=== PATIENT | female | born 1985 | race Caucasian/White ===

== ENCOUNTER 2021-11-23 20:01 | Emergency (ER) | payer OTHER ==
[2021-11-23 20:24] VITALS: BP 120/77; PULSE 70; TEMP 98.6; BMI 30.5
[2021-11-23] MEDS ORDERED: ACETAMINOPHEN 500 MG TABLET (FP) ONE (23:24)
[2021-11-23] MEDS ORDERED: ACETAMINOPHEN 500 MG TABLET (FP) PO ONE (23:25)
== END 2021-11-23 23:30 | disposition home or self-care (01) ==
LOC: FER 20:01
PROC: 0HQGXZZ Repair Left Hand Skin, External Approach (ICD-10-PCS; principal; 2021-11-23)
DX: S61.512A Laceration without foreign body of left wrist, initial encounter (principal); W25.XXXA Contact with sharp glass, initial encounter
CPT/HCPCS: 73110-TC-LT-FY; 99283-25